=== PATIENT | female | born 1960 | race Caucasian/White ===

== ENCOUNTER 2017-02-04 17:44 | Emergency (ER) | payer SELFPAY ==
[~2017-02-04] VITALS: Ht 149.9 cm; Wt 81.5 kg
[~2017-02-04 17:44] MED LIST: NAPR-576 PO; ROBA750T3 PO
[2017-02-04 17:46] VITALS: BP 160/90; PULSE 72; RESP 20; TEMP 98.5; O2SAT 94
--- NOTE | 2017-02-04 18:13 | PD ---
Physical Exam Time Seen by Provider: 18:12 Narrative 56 y/o female presents for evaluation of coughing, tingling, some hemoptysis, some cp when she coughs, hoarse voice. Cough started one week ago. vss Seen at triage desk. Awaiting bed placement. Data Data Last Documented VS Vital Signs Date Time Temp Pulse Resp B/P Pulse Ox O2 Delivery O2 Flow Rate FiO2 02/04/17 17:46 98.5 72 20 160/90 94 Room Air [facility] Medical Record Reviewed: Yes Supervised Visit with BART: Demetrio Colin February 04, 2017 18:13
== END 2017-02-04 18:15 | disposition left against medical advice (07) ==
LOC: NED 17:44
DX: R05 Cough (principal); Z53.21 Procedure and treatment not carried out due to patient leaving prior to being seen by health care provider
CPT/HCPCS: 99282